=== PATIENT | male | born 1950 | race Two or more races ===

== ENCOUNTER 2021-04-10 05:25 | Day surgery (SDC) | payer OTHER ==
[~2021-04-10 05:25] MED LIST: ATORVASTATIN CA10 MG; CHILDREN'S ASPI81 MG; COZAAR100 MG; DILTIAZEM ER120 M2; GLIPIZIDE XL2.5 MG; GLUMETZA500 MG; TENORMIN25 MG
[2021-04-10] MEDS ORDERED: PERCOCET 5-3251 EACH PO (09:08)
== END 2021-04-10 12:35 | disposition home or self-care (01) ==
LOC: CIR.AMB 05:25
PROVIDERS: ATTEND Surgery
DX: D35.1 Benign neoplasm of parathyroid gland (principal); Z20.822 Contact with and (suspected) exposure to COVID-19

== ENCOUNTER 2022-05-28 06:10 | Day surgery (SDC) | payer OTHER ==
[~2022-05-28] VITALS: Ht 162.6 cm; Wt 74.4 kg
[~2022-05-28 06:10] MED LIST changes: +PERCOCET 5-3251 EACH PO
[2022-05-28] MEDS ORDERED: PERCOCET 5-3251 EACH PO (11:26)
== END 2022-05-28 18:45 | disposition home or self-care (01) ==
LOC: CIR.AMB 06:10
PROVIDERS: ATTEND Surgery
DX: D35.1 Benign neoplasm of parathyroid gland (principal); S79.811A Other specified injuries of right hip, initial encounter; W06.XXXA Fall from bed, initial encounter; Y93.89 Activity, other specified; Y92.234 Operating room of hospital as the place of occurrence of the external cause; I10 Essential (primary) hypertension; E11.9 Type 2 diabetes mellitus without complications; Z79.84 Long term (current) use of oral hypoglycemic drugs; Z20.822 Contact with and (suspected) exposure to COVID-19